=== PATIENT | female | born 1955 | race Hispanic/Latino ===

== ENCOUNTER → 2018-01-03 | Outpatient (CLI) | payer BC ==
--- NOTE | 2018-01-03 12:51 | Diagnostic Imaging Report ---
PROCEDURE:L-SPINE COMPLETE COMPARISON:None. INDICATIONS:LOW BACK PAIN FROM FALL FINDINGS: There are 5 lumbar-type vertebral bodies. Degenerative changes evidenced by anterior osteophytosis at multiple levels and bilateral facet hypertrophy at L4/L5 and L5/S1. The vertebral bodies are well-aligned without evidence of spondylolisthesis. There are no fractures, lytic or blastic lesions. The disc-space heights are well-maintained. The sacroiliac joints are unremarkable. CONCLUSION: No acute radiographic abnormality. Degenerative changes. Dictated by: Darrel Lombardo M.D. on 01/03/2018 at 12:52 Electronically approved by: Darrel Lombardo M.D. on 01/03/2018 at 12:52
== END ==
LOC: RAD 11:52
PROVIDERS: ATTEND Family Medicine
DX: M54.5 Low back pain (principal)
CPT/HCPCS: 72110

== ENCOUNTER → 2018-01-26 | Outpatient (CLI) | payer BC ==
--- NOTE | 2018-01-26 18:18 | Diagnostic Imaging Report ---
History: Right leg pain Comparison studies: None Technique: Sagittal, coronal and axial T2 , sagittal T1 and IR, axial spin density oblique. Intravenous contrast: None Findings: Number of lumbar vertebral bodies:5 L5 is sacralized Alignment: Normal lordosis.No scoliosis. Soft tissues: No T2 hyperintense inflammatory changes. Paraspinal muscles: Fatty infiltrated from L2 through S1. Lower thoracic cord:Normal in signal and morphology. The tip of the conus is at superior T12. Cauda equina: No masses. No arachnoiditis. Vertebrae: Normal in height and signal intensity. No compression fractures, infection or neoplasm. Degenerative changes: L1-L2: No abnormalities. L2-L3: Normal disc. Symmetric disc bulge. Patent spinal canal and foramina. No disc herniation.. L3-L4: Normal disc. Symmetric disc bulge. Patent spinal canal and foramina. No disc herniation.. L4-L5: Mildly degenerated disc. Mild spinal canal stenosis due to a disc bulge and moderate bilateral facet arthrosis. T2 hyperintense inflammatory changes are seen in the pedicles at L4 and at L5. Small bilateral facet joint effusions are associated with bilateral synovitis. L5-S1: No abnormalities.. The disc is hypoplastic but intact. Partially visualized sacrum: No signal abnormalities. IMPRESSION: 1. Bilaterally degenerated disc at L4-5. Moderate bilateral facet arthrosis with mild bilateral synovitis and T2 hyperintense inflammatory in the pedicles of L4 on L5 bilaterally. 2. No additional significant abnormalities. Signed by: Dr. Jacobo Shen M.D. on 01/26/2018 6:15 PM
== END ==
LOC: MRI 14:12
PROVIDERS: ATTEND Family Medicine
DX: M54.16 Radiculopathy, lumbar region (principal)
CPT/HCPCS: 72148

== ENCOUNTER → 2018-02-02 | Outpatient (CLI) | payer BC ==
--- NOTE | 2018-02-02 13:19 | Diagnostic Imaging Report ---
EXAMINATION: MRI of the cervical spine without contrast HISTORY: Status post fall 3 years ago, midline neck pain radiating to the bilateral upper extremities with arm numbness, status post fall 3 years ago. COMPARISON: None available TECHNIQUE: Sagittal T1, T2, STIR; axial T2, gradient echo. FINDINGS: Curvature: Normal lordosis. Vertebrae: No evidence of neoplasm, infection, or fracture. Foramen magnum: No mass, Chiari malformation, or basilar invagination. Spinal Cord: Normal size and signal intensity. Soft Tissues: Unremarkable. Degenerative changes: C1-C2: Unremarkable. C2-C3: Facet arthrosis minimally left. No canal or foraminal stenosis. C3-C4: Small disc osteophyte, moderate uncovertebral and facet arthrosis. No canal or foraminal stenosis. C4-C5: Disc osteophyte complex formation, bilateral uncovertebral and facet arthrosis. No significant canal or foraminal stenosis. C5-C6: Small disc osteophyte complex formation, bilateral uncovertebral and facet arthrosis in the left. Moderate left foraminal stenoses. C6-C7: Disc osteophyte complex formation, bilateral uncovertebral and facet arthrosis. Minimal foraminal narrowing. C7-T1: Bilateral facet arthrosis without canal or foraminal stenoses. IMPRESSION: 1. Moderate degenerative foraminal stenosis on the left at C5-6 and mild bilaterally at C6-7 without evidence of nerve root compression. 2. Mild spondylosis from C3-4 through C6-C7 without significant canal stenosis. Signed by: Dr. Isabelle Ang M.D. on 02/02/2018 1:16 PM
== END ==
LOC: MRI 10:53
PROVIDERS: ATTEND Family Medicine
DX: M54.12 Radiculopathy, cervical region (principal)
CPT/HCPCS: 72141